=== PATIENT | female | born 1970 | race Caucasian/White ===

== ENCOUNTER 2017-04-23 23:25 | Emergency (ER) | payer SELFPAY ==
[~2017-04-23] VITALS: Ht 160 cm; Wt 103.9 kg
[2017-04-23 23:25] VITALS: BP 121/67
[2017-04-23] MEDS ORDERED: NAPR500T4 PO (23:58)
--- NOTE | 2017-04-23 23:58 | PHYS DOC ---
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 Patient reports that she has been putting tissue paper in her ears which somehow assist her with hearing her headphones while she is singing outside of the [employer]. Patient also complaining of bilateral hip pain area did patient denies any other symptomatology. Patient has any trauma. Patient has any fevers shakes chills nausea vomiting diarrhea chest pain terns of breath cough cold rhinorrhea. Review of systems: Constitutional: Denies fever or chills Eyes: Denies change in visual acuity, redness, or eye pain HENT: Denies nasal congestion or sore throat All other systems were reviewed and found to be within normal limits, except as documented in this note. Physical exam Constitutional: Well developed, well nourished, no acute distress, non-toxic appearance. HENT: Normocephalic, atraumatic, bilateral external ears normal, oropharynx moist, no oral exudates, nose normal. Eyes: PERRLA, EOMI, conjunctiva normal, no discharge. Neck: Normal range of motion, no tenderness, supple, no stridor. Cardiovascular:Heart rate regular rhythm, Lungs & Thorax: Bilateral breath sounds clear to auscultation Abdomen: Nondistended. Skin: Warm, dry, no erythema, no rash. Back: No tenderness, no CVA tenderness. Extremities: No tenderness, no cyanosis, no clubbing, ROM intact, no edema. Neurologic: Alert and oriented X 3, normal motor function, normal sensory function, no focal deficits noted. Psychologic: Affect normal, judgement normal, mood normal. ER physical exam is significant for: Tissue paper bilaterally in both ears. Ears and been irrigated copiously with saline/peroxide. After removal of the tissue paper in both her ears, both eardrums are pearly angulo without any erythema bulging or fluid. There is no evidence of otitis media or otitis externa. Patient has mild tenderness to palpation to both hips. Patient is ambulating with some mild discomfort. Assessment and plan: 1. Ear pain: Likely secondary to foreign body in both ears. There is been irrigated. Patient feels much better and is able to hear out of her ears exam. Patient was discharged home with instructions not to put anything else in her ear. No indication for antibiotics at this time. He hasn't been tried with Q- tips after irrigation. 2. Bilateral hip pain: Most likely secondary to overuse syndrome. Patient be treated with Naprosyn will be given a prescription for Naprosyn as well. Allergies Allergies Allergies Coded Allergies Type Severity Reaction Last Updated Verified codeine Allergy Mild 09/30/13 Yes EKG EKG [] Radiology/Procedures Radiology/Procedures [] Course & Med Decision Making Course & Med Decision Making Pertinent Labs and Imaging studies reviewed. (See chart for details) [] Dragon Disclaimer Dragon Disclaimer This electronic medical record was generated, in whole or in part, using a voice recognition dictation system. Departure Departure: Impression: Primary Impression: Arthralgia of hip Additional Impression: Foreign body of both ears Disposition: 01 HOME, SELF-CARE Condition: IMPROVED Referrals: PCP,NO (PCP) Patient Instructions: Arthralgia, Ear Foreign Body Scripts Naproxen (NAPROXEN) 500 Mg Tablet 1 TAB PO BID, #30 TAB Prov: JIM CAMPBELL MD 04/23/17 Problem Qualifiers JIM CAMPBELL MD Apr 23, 2017 23:58
[2017-04-24] MEDS ORDERED: NAPROXEN 500 MG TABLET PO ONE
[2017-04-24] MEDS ORDERED: NAPROXEN 500 MG TABLET ONE (00:01)
== END 2017-04-24 00:15 | disposition home or self-care (01) ==
LOC: ER 23:25
DX: T16.2XXA Foreign body in left ear, initial encounter (principal); T16.1XXA Foreign body in right ear, initial encounter; M25.552 Pain in left hip; M25.551 Pain in right hip; I10 Essential (primary) hypertension; F41.9 Anxiety disorder, unspecified; F32.9 Major depressive disorder, single episode, unspecified; F17.200 Nicotine dependence, unspecified, uncomplicated; F10.20 Alcohol dependence, uncomplicated; Z88.5 Allergy status to narcotic agent; X58.XXXA Exposure to other specified factors, initial encounter; Y93.89 Activity, other specified; Y99.8 Other external cause status; Y92.89 Other specified places as the place of occurrence of the external cause
CPT/HCPCS: 99284